=== PATIENT | female | born 1940 | race Caucasian/White ===

== ENCOUNTER 2020-12-18 20:08 | Emergency (ER) | payer MEDICARE, SELFPAY ==
--- NOTE | ~2020-12-18 | CT_ITS ---
EXAMINATION: CTA chest PE protocol DATE: 12/18/2020 22:50 INDICATION: Shortness of breath TECHNIQUE: Computed tomography angiography (CTA) of the chest was performed with 100 mL Omnipaque-350 intravenous contrast timed to evaluate the pulmonary arteries. Coronal maximum intensity projection 3D-reconstructions were created by the technologist. Automated exposure control and iterative reconst ruction technique were employed. Exam dose: 549.86 mGy-cm total exam DLP. COMPARISON: 12/18/2020 portable AP chest FINDINGS: There is diagnostic contrast enhancement of the pulmonary arteries and extensive bilateral pulmonary embolism involving bilateral upper and lower lobes and middle lobe. There is evidence of right heart strain. No thoracic aortic aneurysm or dissection. No hilar or mediastinal mass lesion or lymphadenopathy. No pericardial or pleural effusion. No pulmonary consolidation is evident. There are mild primarily peripheral interstitial changes and s ubtle groundglass pulmonary infiltrates. Status post cholecystectomy. The adrenal glands are unremarkable. Degenerative changes of the thoracic spine. No suspicious osteolytic or osteoblastic lesions are note d. IMPRESSION: Extensive bilateral pulmonary embolism Reviewed, dictated and finalized at [facility]. Reviewed, dictated and finalized at [facility].
--- NOTE | ~2020-12-18 | XR_ITS ---
EXAMINATION: XR chest 1V portable INDICATION: Shortness of breath TECHNIQUE: Portable AP chest at 2024 hours COMPARISON: None available FINDINGS: There are minimal opacities of the left lung base and left upper lung zone. No pleural effu audelia or pneumothorax is identified. The cardiomediastinal silhouette is normal. IMPRESSION: 1. Minimal opacities of the left lung base and left upper lung zone, consistent with atelectasis vers us pneumonia. Reviewed, dictated and finalized at location [facility]. IMPRESSION: 1. Minimal opacities of the left lung base and left upper lung zone, consistent with atelectasis versus pneumonia.
[2020-12-18 20:08] VITALS: BP 89/64; PULSE 117; RESP 30; O2SAT 86
--- NOTE | 2020-12-18 20:13 | ECG_ITS ---
Measurements Intervals [place] Rate: 117 P: 33 KS: 152 QRS: -66 QRSD: 102 T: 97 QT: 250 QTc: 350 Interpretive Statements SINUS TACHYCARDIA ATRIAL AND VENTRICULAR PREMATURE COMPLEXES LEFT ANTERIOR FASCICULAR BLOCK LEFT VENTRICULAR HYPERTROPHY AND ST-T CHANGE ST-T WAVE ABNORMALITY IN HIGH LATERAL LEADS- CONSIDER ISCHEMIA BASELINE ARTIFACT- I, III, AVR, AVL, AVF, V2 ABNORMAL ECG Electronically Signed On 12-18-2020 21:26:31 CDT by Sher Urena D.O.
[2020-12-18 20:18] VITALS: BP 112/50; PULSE 117; PULSE 118; RESP 32; O2SAT 88
[2020-12-18] MEDS: SODIUM CHLORIDE 0.9% IV 1,000 ML 999 ML IV CONT (20:21)
[2020-12-18 20:43] LABS: Alveolar/Arterial O2 Gradient 634.1 mmHg; Base Excess ABG 0.1 mEq/l (+/-2.0); Fractional Inspired Oxygen 100 %; HCO3 ABG 22.5 mEq/l (22.0-26.0); Oxygen Content ABG 12.7 %vol (16.0-22.0); Oxygen Saturation ABG 89.4 % (95.0-100.0); Oxyhemoglobin 87.1 % THb (90.0-100.0); PCO2 ABG 28.9 mmHg (35.0-45.0); Total Hemoglobin 10.4 g/dL (12.0-18.0)
[2020-12-18 20:46] LABS: Site Drawn RIGHT RADIAL; pH ABG 7.509 (7.350-7.450)
[2020-12-18 20:47] LABS: Device NON-REBREATHER MASK; Modified Allen's Test Pass
[2020-12-18 20:51] LABS: Basophils Percent Auto 0.2 % (0.2-1.2); Eosinophils Absolute Auto 0.2 K/mm3 (0-0.3); Hematocrit 31.6 % (37.0-47.0); Hemoglobin 10.2 g/dL (12.0-15.0); Immature Granulocyte Absolute 0.03 K/mm3 (0.00-0.031); Immature Granulocyte Percent A 0.3 % (0-0.5); Lymphocytes Absolute Auto 2.59 K/mm3 (0.9-3.2); Lymphocytes Percent Auto 27.4 % (18.3-44.2); Mean Corpuscular HGB Conc 32.3 g/dl (32-36); Mean Corpuscular Hemoglobin 29.3 pg (26-34); Mean Corpuscular Volume 90.8 fl (80-100); Mean Platelet Volume 10.2 fl (7.4-10.4); Monocytes Absolute Auto 0.7 K/mm3 (0.1-0.6); Monocytes Percent Auto 7.4 % (2.6-8.5); Neutrophils Absolute Auto 5.9 K/mm3 (1.3-6.7); Neutrophils Percent Auto 62.7 % (45.5-73.1); Platelet Count Result 329 k/mm3 (150-375); Red Blood Count 3.48 M/mm3 (4.2-5.4); Red Cell Distribution Width 13.6 % (11.5-14.5); White Blood Count 9.4 K/mm3 (4.5-10.0)
[2020-12-18 20:55] VITALS: PULSE 106; O2SAT 99
[2020-12-18 21:07] LABS: NT Pro B Type Natriuretic Pept 386 pg/mL (5-100)
[2020-12-18 21:12] LABS: Lactic Acid Reflex 4.1 mmol/L (0.7-2.1)
[2020-12-18 21:13] LABS: Anion Gap 12 mmol/L (8-16); Blood Urea Nitrogen 11 mg/dL (7-17); Calcium 8.5 mg/dL (8.4-10.2); Carbon Dioxide 21 mmol/L (22-30); Chloride 102 mmol/L (98-107); Estimated CRCL calculation 69 ml/min; Estimated Glomerular Filt Rate > 60; Glucose 270 mg/dL (65-110); Potassium 2.6 mmol/L (3.4-5.0); Sodium 135 mmol/L (137-145)
[2020-12-18 22:53] VITALS: PULSE 106; RESP 22; O2SAT 99
--- NOTE | 2020-12-18 23:17 | ED.SOB ---
HPI - SOB/Dyspnea General Chief Complaint: Shortness of Breath/Dyspnea Stated Complaint: SOB x 20 minutes Time Seen by Provider: 12/18/20 20:14 History of Present Illness HPI Narrative: Patient is an 80-year-old female who presents to the ER with sudden onset shortness of breath. Found to be hypoxic at 61% on room air, EMS placed her on 15L facemask with improvement into the 80s. Patient denies chest pain. No recent sinus congestion or sore throat or productive cough. Denies fevers or chills or sweats. Patient in the last month suffered a stroke at [facility]. She then had a UTI and was at [facility]. Patient has been pretty much bedbound according to her hwonrran-[id number] and not moving. Related Data Allergies Allergy/AdvReac Type Severity Reaction Status Date / Time cefdinir Allergy Unknown Unknown Verified 12/18/20 20:19 latex Allergy Unknown Unknown Verified 12/18/20 20:19 Bmoknpb-Yjk-Ezr Reductase Allergy Unknown Unknown Verified 12/18/20 20:19 Inhibitor ORAMYCIN Allergy Unknown Unknown Uncoded 12/18/20 20:19 Review of Systems Review of Systems: All systems reviewed & are unremarkable except as noted in HPI and below Constitutional: Constitutional: Denies chills, Denies fever(s) and Denies weakness ENT: Denies nasal congestion and Denies sore throat Cardiovascular: Cardiovascular: Denies chest pain, Denies rapid heart rate and Denies radiating jaw, neck or arm pain Respiratory: Respiratory: Denies cough, Reports dyspnea and Denies wheezing Gastrointestinal: Gastrointestinal: Denies abdominal pain, Denies nausea and Denies vomiting PMFSH Past Medical History Medical History (Updated 12/18/20 @ 23:57 by Rufino Berger MD) Abdominal aortic aneurysm Cerebral infarction GERD (gastroesophageal reflux disease) Hyperlipidemia Hypertension Type 2 diabetes mellitus Social History Social History Gender identity (if verbalized by the patient): Female Exam Narrative: GENERAL: Ill-appearing, well-nourished, and in no acute distress. HEAD: Normocephalic, atraumatic. EYES: PERRL and EOMI. ENT: Mucous membranes moist. CHEST: Clear to auscultation. Moderate respiratory distress. HEART: Tachycardic and regular. Normal peripheral pulses. ABDOMEN: Soft, nontender, nondistended. EXTREMITIES: Normal range of motion and strength upper extremities. No edema. No lower extremity tenderness. Patient shuffles legs. SKIN: Warm, dry, no rash. NEURO: Alert and oriented x3. PSYCH: Normal mood and affect. Course Course Emergency Course: Patient informed of lab results and imaging results. Discussed with family and they would like me to inquire about EKOS procedure at a larger facility. I spoke with [facility] who has no ICU beds but has been accepted to the MICU by Dr. Mistry. In an effort to get this patient care I contacted [facility] who has no ICU availability. I also contacted [facility] and spoke to the MICU, they have accepted the patient to the waiting list as well under Dr. Kwon. Patient has been on IV heparin and is still not oxygenating well though her blood pressure is improved. Patient appears comfortable. Reevaluation(s) Reevaluation #1: Patient accepted to the ICU by station engineer main line. He is recommended patient be electively intubated. Discussed this with patient and family. Patient is in agreement. Accepted to hospitalist service by Dr. Montoya. Date: 12/19/20 Time: 01:18 Reevaluation #2: Patient electively intubated due to failure on BiPAP with persistent hypoxia. Patient's O2 sat continued to drop. She then lost her pulses. Family requested CPR to be performed. We did have brief return of spontaneous circulation but patient was persistently bradycardic and received atropine. After discussion with family was determined that should patient lose pulses again they would not want her to be resuscitated. Patient was range for during the code will talk to family by Dr. Mcclendon. Marlin
[2020-12-18 23:46] LABS: Reflex Lactic Acid Yes or No Add Lactic
[2020-12-18] MEDS: HEPARIN SODIUM 5,000 UNITS/ML VIAL 5500 UNITS IV PUSH (23:55)
[2020-12-18] MEDS: HEPARIN SOD/D5W 100 UNITS/ML 25,000 UNITS/250 ML BAG 10 UNITS IV CONT (23:55)
[2020-12-19 00:16] VITALS: BP 115/73; PULSE 111; RESP 21; O2SAT 92
[2020-12-19 00:29] LABS: Alveolar/Arterial O2 Gradient 634.9 mmHg; Base Excess ABG 2.2 mEq/l (+/-2.0); Carboxyhemoglobin 0.1 % THb (0-2.0); Fractional Inspired Oxygen 100 %; HCO3 ABG 24.8 mEq/l (22.0-26.0); Methemoglobin ABG 0.2 %THb (0-1.5); Oxygen Saturation ABG 87.4 % (95.0-100.0); Oxyhemoglobin 85.9 % THb (90.0-100.0); PCO2 ABG 31.3 mmHg (35.0-45.0); PO2 FiO2 Ratio Arterial Blood 0.47 %; Reduced Hemoglobin 13.8 %THb (0-5.0); Total Hemoglobin 10.8 g/dL (12.0-18.0)
[2020-12-19 00:30] LABS: Modified Allen's Test Pass; PO2 ABG 46.8 mmHg (80.0-100.0); Site Drawn RIGHT RADIAL; pH ABG 7.516 (7.350-7.450)
[2020-12-19 00:31] LABS: Lactic Acid 2.6 mmol/L (0.7-2.1)
[2020-12-19 00:31] LABS: Device NON-INVASIVE VENT; Non-Invasive Expiratory Pressure 8 CMH2O; Non-Invasive Inspiratory Pressure 14 CMH2O; Non-Invasive Vent Rate 14 /MIN
--- NOTE | 2020-12-19 01:14 | PC.NURSE ---
elective Intubation due to poor oxygen saturation initiated per AIDA Nazario at 0110 post discussion with pt and family regarding risks of procedure. family at bedside for procedure. Respiratory at bedside, crash cart in room. post time out pt given 30 mg etomidate and 100 mg succinylcholine given 0114. pt intubated with 7.5 ET tube 22 at the lips at 0116, pt had bilateral breath sounds, equal chest rise and fall. Post intubation pts oxygen saturation began to decrease to 60%. pt heart rate became bradycardic heart rate at 30 0118. pt lost pulse compressions began at 0119 0122 1 mg epi given 0124 pulse check, pt in PEA on the monitor, no pulse detected compressions resumed 0126 1 mg epi given 0128 pulse check, pulse detected, HR 80, compressions stopped, AIDA Nazario discussed with family pt status changed to DNR. 0138 pt HR 34, 1 mg epi given 0139 1 mg atropine, HR 47 after atropine given 0140 pulse check, pt pulseless PEA on the monitor 0141 levophed 5 mcg given 0143 time of announced.
--- NOTE | 2020-12-19 01:19 | PC.NURSE ---
Intubation per EDP Aravind at 0114 30 mg etomidate and 100 mg succinylcholine given. pt intubated 22 at the lips at 0116. pt lost pulse compressions began at 0119 0122 1 mg epi given 0124 pulse check, no pulse detected compressions resumed 0126 1 mg epi given 0128 pulse check, pulse detected compressions stopped 0138 1 mg epi given 0139 1 mg atropine 0140 pulse check 0141 levophed 5 mcg given 0143 time of announced.
[2020-12-19 01:22] LABS: Troponin I 0.045 ng/mL (0.000-0.034)
--- NOTE | 2020-12-19 02:49 | PC.NURSE ---
Called [facility] in [facility] per pt's family request. Called Odette from the [facility] coroner's office to update her of their selection she released the body at this time.
== END 2020-12-19 03:52 | disposition expired ==
PROVIDERS: Emergency Provider Emergency Medicine
DX: I26.99 Other pulmonary embolism without acute cor pulmonale (principal); J96.00 Acute respiratory failure, unspecified whether with hypoxia or hypercapnia; E87.6 Hypokalemia; K21.9 Gastro-esophageal reflux disease without esophagitis; E78.5 Hyperlipidemia, unspecified; I10 Essential (primary) hypertension; E11.9 Type 2 diabetes mellitus without complications; Z86.73 Personal history of transient ischemic attack (TIA), and cerebral infarction without residual deficits; R91.8 Other nonspecific abnormal finding of lung field
CPT/HCPCS: 31500; 36415; 36600; 71045; 71275; 80048; 82375; 82805; 83050; 83605; 83880; 84484; 85025; 92950; 93005; 94002; 96361; 96365; 96366; 96368; 99291; J0171; J0330; J1644; J2250; J3480; J7030; J7050; Q9967